=== PATIENT | female | born 1975 | race Caucasian/White ===

== ENCOUNTER → 2017-08-31 13:49 | Outpatient (CLI) | payer BC, SELFPAY ==
[2017-09-07 09:55] LABS: HPV HC, High Risk Negative (Negative); HPV Reflexed? YES, CHARGE PATIENT
== END ==
PROVIDERS: Visit Provider Obstetrics & Gynecology
DX: Z12.4 Encounter for screening for malignant neoplasm of cervix (principal); Z12.72 Encounter for screening for malignant neoplasm of vagina
CPT/HCPCS: 87624; 88175; G0145

== ENCOUNTER → 2017-09-27 06:56 | Outpatient (CLI) | payer BC, SELFPAY ==
--- NOTE | 2017-09-27 07:04 | BI_ITS ---
MAMMOGRAPHY - BILATERAL SCREENING 3-D JIMMIE SYNTHESIS REASON FOR EXAM: Female, 42 years old. Bilateral Screening 3-D tomosynthesis PERTINENT HISTORY: No significant family history. TECHNIQUE: 2-D mammograms and 3-D Jimmie synthesis of the breast (s) were performed. CAD was performed. COMPARISON: September 15, 2016. FINDINGS: The breast composition is composed of scattered fibroglandular density. No dense spiculated masses or suspicious clustered microcalcifications are identified. No architectural distortion is identified. There is no skin thickening or retraction. There has been no significant change since the prior study. BI/SCREENING MAMM (CAD), BILAT IMPRESSION: No mammographic signs of malignancy. Routine yearly mammograms recommended. ASSESSMENT CATEGORY: BIRADS Category 1: Negative. A letter regarding these results will be sent to the patient by the facility within 30 days. FOLLOW UP RECOMMENDATION: Yearly follow up mammogram recommended. (A) Approximately 10% of breast cancers are not detected by mammography. A normal mammogram should not delay biopsy of a clinically suspicious abnormality. Electronically Signed: Gabriel Perez MD at 8:23 EDT , Service support ,
== END ==
PROVIDERS: Family Provider Family Medicine; PCP Family Medicine; Visit Provider Obstetrics & Gynecology
DX: Z12.31 Encounter for screening mammogram for malignant neoplasm of breast (principal)
CPT/HCPCS: 77063; 77067

== ENCOUNTER → 2018-09-04 09:35 | Outpatient (CLI) | payer BC, SELFPAY ==
[2018-09-07 12:27] LABS: HPV HC, High Risk Positive (Negative)
== END ==
PROVIDERS: PCP Family Medicine; Visit Provider Obstetrics & Gynecology
DX: Z12.4 Encounter for screening for malignant neoplasm of cervix (principal)
CPT/HCPCS: 87624; 88175; G0145

== ENCOUNTER → 2018-10-05 11:59 | Outpatient (CLI) | payer BC, SELFPAY ==
--- NOTE | 2018-10-05 12:01 | BI_ITS ---
MAMMOGRAPHY - BILATERAL SCREENING 3-D TOMOSYNTHESIS REASON FOR EXAM: Female, 43 years old. Bilateral Screening 3-D tomosynthesis PERTINENT HISTORY: Mother at age 55 and 3 cousins at age 48, 45 and 30 with history of breast cancer.. TECHNIQUE: 2-D mammograms and 3-D Tomosynthesis of the breast (s) were performed. CAD was performed. COMPARISON: September 27, 2017. FINDINGS: The breast composition is composed of scattered fibroglandular density. Scattered benign calcifications are seen. No dense spiculated masses or suspicious microcalcifications are identified. No architectural distortion is identified. There is no skin thickening or retraction. There has been no significant change since the prior study. BI/SCREENING MAMM (CAD), BILAT IMPRESSION: No mammographic signs of malignancy. Routine yearly mammograms recommended. ASSESSMENT CATEGORY: BIRADS Category 1: Negative. A letter regarding these results will be sent to the patient by the facility within 30 days. FOLLOW UP RECOMMENDATION: Yearly follow up mammogram recommended. (A) Approximately 10% of breast cancers are not detected by mammography. A normal mammogram should not delay biopsy of a clinically suspicious abnormality. Electronically Signed: Gabriel Perez MD at 15:55 EDT , Service support ,
== END ==
PROVIDERS: Family Provider Family Medicine; PCP Family Medicine; Referring Provider Obstetrics & Gynecology; Visit Provider Obstetrics & Gynecology
DX: Z12.31 Encounter for screening mammogram for malignant neoplasm of breast (principal)
CPT/HCPCS: 77063; 77067

== ENCOUNTER → 2018-10-19 13:41 | Outpatient (CLI) | payer BC, SELFPAY ==
[2018-10-19 16:47] LABS: Chlamydia Trachomatis by PCR Negative (Negative); Neisserai gonorrhoeae by PCR Negative (Negative); Probe Check PASS; Sample Adequacy Control PASS; Specimen Processing Control PASS
== END ==
PROVIDERS: Visit Provider Obstetrics & Gynecology
DX: Z11.3 Encounter for screening for infections with a predominantly sexual mode of transmission (principal)
CPT/HCPCS: 87491; 87591

== ENCOUNTER → 2018-12-14 14:10 | Outpatient (CLI) | payer BC, SELFPAY ==
--- NOTE | 2018-12-14 14:14 | RAD_ITS ---
STUDY: X-RAY - LEFT ELBOW REASON FOR EXAM: Female, 43 years old. Posttraumatic pain TECHNIQUE: 3 view(s) of the elbow. COMPARISON: January 03, 2013 FINDINGS: Normal visualized humerus, radius and ulna. Normal radiocapitellar and ulnotrochlear articulations. The soft tissue structures are unremarkable. RAD/Elbow min 3 Views IMPRESSION: Normal x-ray examination of the elbow. Electronically Signed: Ray Muir MD at 22:00 EDT , Service support ,
== END ==
PROVIDERS: Family Provider Family Medicine; PCP Family Medicine; Referring Provider Family Medicine; Visit Provider Family Medicine
DX: M25.522 Pain in left elbow (principal)
CPT/HCPCS: 73080

== ENCOUNTER → 2020-03-26 | Outpatient (CLI) | payer BC, SELFPAY ==
[2020-03-31 03:06] LABS: Chlamydia By Nucleic Acid AMP Negative (Negative)
[2020-03-31 12:01] LABS: Gonococcus By Nucleic Acid AMP Negative (Negative)
[2020-03-31 15:48] LABS: HPV APTIMA, High Risk Negative (Negative)
[2020-03-31 15:49] LABS: HPV Reflexed? YES, CHARGE PATIENT
== END | disposition home or self-care (01) ==
LOC: LABSPEC 13:12
PROVIDERS: PCP Family Medicine; Visit Provider Student in an Organized Health Care Education/Training Program
DX: Z12.4 Encounter for screening for malignant neoplasm of cervix (principal); Z11.3 Encounter for screening for infections with a predominantly sexual mode of transmission
CPT/HCPCS: 87491; 87591; 87624; 88175; G0145

== ENCOUNTER → 2020-04-15 07:13 | Outpatient (CLI) | payer BC, SELFPAY ==
--- NOTE | 2020-04-15 07:14 | BI_ITS ---
MAMMOGRAPHY - BILATERAL SCREENING REASON FOR EXAM: Female, 44 years old. Routine annual screening examination. PERTINENT HISTORY: Mother with breast cancer. TECHNIQUE: Digital bilateral breast jimmie (3D mammographic acquisition) in the CC and MLO projections. 2-D mediolateral oblique (MLO) and craniocaudad (CC) views of both breasts were obtained. CAD: Full Field Digital Mammography with Computer Added Detection was performed. COMPARISON: Comparison is made with prior study dated 10/05/2018 and 09/27/2017. FINDINGS: Breast Composition: The breasts are heterogeneously dense, which may obscure small masses. There are no dominant masses or suspicious calcifications. No other significant abnormalities are identified. There has been no significant change since the prior study. BI/SCREEN MAMM (CAD) W/JIMMIE BILAT IMPRESSION: Stable bilateral screening mammogram. Yearly follow-up mammogram recommended. (A) ASSESSMENT CATEGORY: BIRADS Category 1: Negative. A letter regarding these results will be sent to the patient by the facility within 30 days. Approximately 10% of breast cancers are not detected by mammography. A normal mammogram should not delay biopsy of a clinically suspicious abnormality. [id number] Electronically Signed: Eber Marie, at 8:18 EST , Service support ,
== END ==
PROVIDERS: PCP Family Medicine; Referring Provider Student in an Organized Health Care Education/Training Program; Visit Provider Student in an Organized Health Care Education/Training Program
DX: Z12.31 Encounter for screening mammogram for malignant neoplasm of breast (principal); Z80.3 Family history of malignant neoplasm of breast
CPT/HCPCS: 77063; 77067

== ENCOUNTER → 2020-04-21 | Outpatient (CLI) | payer BC, SELFPAY ==
--- NOTE | 2020-04-21 | IMM_PTH ---
PATIENT: EVELYNE VILLASENOR LOC: [facility] U#:[id number] AGE/SX: 44/F ROOM: RE04/21/[address]: Dr. Adelaide Villasenor DO : 1975 BED: DIS: 04/21/2020 SPEC #: [id number] RECD: 04/23/20 13:02 STATUS: MÓNICA REQ #: [id number] EVE: 04/21/20 00:[address]: Adelaide Villasenor DEPT: IMMUNOHISTOCHEMISTRY RECD BY: Joyce Lang ENTERED: 04/23/20 13:02 SP TYPE: IMMUNO OTHR DR: Dr. Yanick Limon MD Tissues: Uterine cervix, NOS Procedures: p16 (initial) KI-67 (add) PHYSICIAN & INSTITUTION [place] [id number] SPECIMEN INFORMATION: Tissue Source: Cervix at 12 o'clock, biopsy Clinical Info: ASCUS, HPV negative Specimen Number: [id number] CPT code: 26854, 53940 METHODOLOGY: Deparaffinized sections of prefer/formalin-fixed tissue or PAP/DQ stained slides are incubated with monoclonal/polyclonal antibodies/oligonucleotide probes. Localization is made via biotin free immunoperoxidase method. Appropriate controls are performed and reacted as expected. Results on target cell population are indicated in the following table: RESULTS: ANTIBODY / CLONE RESULT P16 (E6H4) positive, focal, patchy Ki-67 (30-9) negative, moderate These tests were developed and their performance characteristics determined by [facility]. They may not have been cleared or approved by the U.S. Food and Drug Administration. The FDA has determined that such clearance or approval is not necessary. The above immunohistochemical/dualISH markers are ordered and reviewed by the Pathologist. INTERPRETATION: Cervix at 12 o'clock, biopsy: Consistent with mild squamous dysplasia TRISTEN I (LSIL). AM:kayleigh 04/24/20
--- NOTE | 2020-04-21 15:10 | CER_PTH ---
PATIENT: EVELYNE GALLAGHER LOC: [facility]#:[id number] AGE/SX: 44/F ROOM: RE04/21/[address]: Dr. Adelaide Gallagher DO : 1975 BED: DIS: 04/21/2020 SPEC #: [id number] RECD: 04/22/20 08:50 STATUS: MÓNICA REAshlie #: [id number] EVE: 04/21/20 15:[address]: Adelaide Galalgher DEPT: SURGICAL PATHOLOGY RECD BY: Laine Galloway ENTERED: 04/22/20 10:55 SP TYPE: CERV OTHR DR: Dr. Yanick Limon MD Tissues: Uterine cervix, NOS Procedures: Surgery Specimen Level IV HEADER OPERATION: Colposcopy PRE-OP DIAGNOSIS: ASCUS, HPV negative TISSUE SUBMITTED: Cervical biopsy 12 o'clock MICROSCOPIC DIAGNOSIS Cervix at 12 o'clock, biopsy: Consistent with focal HPV change. See comment. AM:kayleigh 04/23/20 COMMENT Results from immunohistochemistry ([id number]) for surrogate HPV marker (p16) supports the diagnosis. MICROSCOPIC DESCRIPTION Slides are reviewed. GROSS DESCRIPTION Received in fixative is one container labeled with the patient's name and designated cervical biopsy. The specimen consists of one irregular fragment of light tyson soft tissue that measures 0.4 x 0.3 x 0.1 cm. The specimen is totally submitted in one cassette. / AM:kayleigh 04/22/20 TC:2 CPT: 13864
== END | disposition home or self-care (01) ==
LOC: LABSPEC 04-22 08:43
PROVIDERS: PCP Family Medicine; Visit Provider Student in an Organized Health Care Education/Training Program
DX: R87.610 Atypical squamous cells of undetermined significance on cytologic smear of cervix (ASC-US) (principal)
CPT/HCPCS: 88305; 88341; 88342

== ENCOUNTER → 2020-05-20 16:03 | Outpatient (CLI) | payer BC, SELFPAY ==
[2020-05-20 18:11] LABS: Hematocrit 39.3 % (37-47); Hemoglobin 13.1 g/dL (12.0-15.0); Mean Corp Hgb Conc 33.3 g/dL (32-36); Mean Corpuscular Hgb 30.5 pg (27.0-32.0); Mean Corpuscular Volume 91.4 fL (81-99); Mean Platelet Vol. 11.7 fl (6.2-12.0); Platelet Count 265 K/mm3 (150-450); RBC Distribution Width SD 39.9 fl (35.1-43.9); White Blood Count 9.2 K/mm3 (4.4-11.0)
[2020-05-20 18:43] LABS: CRP < 2.90 mg/L (0.0-3.0); T4 Total, Thyroxin 8.5 ug/dL (4.8-13.9)
[2020-05-22 16:08] LABS: Endomysial Antibody IgA Negative (Negative)
[2020-05-22 17:07] LABS: Immunoglobulin A 176 mg/dL (87-352); t-Transglutaminase IgA <2 U/mL (0-3)
== END ==
PROVIDERS: PCP Family Medicine; Referring Provider Internal Medicine Gastroenterology; Visit Provider Internal Medicine Gastroenterology
DX: R10.9 Unspecified abdominal pain (principal); R19.7 Diarrhea, unspecified
CPT/HCPCS: 36415; 82784; 83516; 84436; 84443; 85027; 86140; 86255

== ENCOUNTER → 2020-11-30 | Outpatient (CLI) | payer BC, SELFPAY ==
[2020-11-30 17:42] LABS: Bacteria 0 SEEN /hpf (None Seen); Mucous, Urine 0 SEEN /hpf (<or=2+); Red Blood Cells-Urine 0 SEEN /hpf (0-5); Squamous Epithelial Cells - UA 0 SEEN /hpf (5-10); White Blood Cells 0 SEEN /hpf (0-5)
[2020-11-30 18:22] LABS: Color, Urine Yellow (Yellow); Glucose, Dipstick Normal (Normal); Ketone-Dipstick Negative (Negative); Leukocyte Esterase-Dipstick Negative /ul (Negative); Nitrite-Dipstick Negative (Negative); Occult Blood-Urine 10 /ul (Negative); Protein-Dipstick Negative (Negative); Urine Bilirubin Dipstick Negative (Negative); Urine Clarity Clear (Clear); Urine Urobilinogen Normal (Normal); Urine pH 6.5 (5.0 - 8.0)
== END | disposition home or self-care (01) ==
PROVIDERS: PCP Family Medicine; Visit Provider Student in an Organized Health Care Education/Training Program
DX: R30.0 Dysuria (principal); N76.0 Acute vaginitis
CPT/HCPCS: 81001; 87077; 87086; 87088

== ENCOUNTER 2021-09-02 12:21 | Outpatient (CLI) | payer BC, SELFPAY ==
[2021-09-10 13:35] LABS: HPV APTIMA, High Risk Positive (Negative)
== END 2021-09-02 23:59 | disposition home or self-care (01) ==
LOC: WOBLAB 12:22
PROVIDERS: PCP Family Medicine; Visit Provider Student in an Organized Health Care Education/Training Program
DX: Z12.4 Encounter for screening for malignant neoplasm of cervix (principal)
CPT/HCPCS: 87624; 88175; G0145

== ENCOUNTER 2021-09-10 07:07 | Outpatient (CLI) | payer OTHER, SELFPAY ==
--- NOTE | 2021-09-10 07:30 | BI_ITS ---
MAMMOGRAPHY - BILATERAL SCREENING REASON FOR EXAM: Female, 45 years old. Routine annual screening examination. PERTINENT HISTORY: Mother with breast cancer. TECHNIQUE: Digital bilateral breast jimmie (3D mammographic acquisition) in the CC and MLO projections. 2-D mediolateral oblique (MLO) and craniocaudad (CC) views of both breasts were obtained. CAD: Full Field Digital Mammography with Computer Added Detection was performed. COMPARISON: Comparison is made with prior study of 04/15/2020 and 10/05/2018. FINDINGS: Breast Composition: The breasts are heterogeneously dense, which may obscure small masses. There are no dominant masses or suspicious calcifications. No other significant abnormalities are identified. There has been no significant change since the prior study. BI/SCRN MAMM (CAD)W/JIMMIE BILAT IMPRESSION: Stable bilateral screening mammogram. Yearly follow-up mammogram recommended. (A) ASSESSMENT CATEGORY: BIRADS Category 1: Negative. A letter regarding these results will be sent to the patient by the facility within 30 days. Approximately 10% of breast cancers are not detected by mammography. A normal mammogram should not delay biopsy of a clinically suspicious abnormality. [id number] Electronically Signed: Eber Marie MD at 8:44 EDT ,
== END 2021-09-10 23:59 | disposition home or self-care (01) ==
PROVIDERS: PCP Family Medicine; Referring Provider Student in an Organized Health Care Education/Training Program; Visit Provider Student in an Organized Health Care Education/Training Program
DX: Z12.31 Encounter for screening mammogram for malignant neoplasm of breast (principal); Z80.3 Family history of malignant neoplasm of breast
CPT/HCPCS: 77063; 77067

== ENCOUNTER → 2022-09-16 | Outpatient (CLI) | payer OTHER, SELFPAY ==
[2022-09-26 13:08] LABS: HPV APTIMA, High Risk Positive (Negative)
== END | disposition home or self-care (01) ==
LOC: LABSPEC 13:12
PROVIDERS: PCP Family Medicine; Visit Provider Student in an Organized Health Care Education/Training Program
DX: Z12.4 Encounter for screening for malignant neoplasm of cervix (principal)
CPT/HCPCS: 87624; 88175; G0145

== ENCOUNTER → 2022-09-23 | Outpatient (CLI) | payer OTHER, SELFPAY ==
--- NOTE | 2022-09-23 07:49 | BI_ITS ---
MAMMOGRAPHY - BILATERAL SCREENING REASON FOR EXAM: Female, 46 years old. Routine annual screening examination. PERTINENT HISTORY: Mother with breast cancer. TECHNIQUE: Digital bilateral breast jimmie (3D mammographic acquisition) in the CC and MLO projections. 2-D mediolateral oblique (MLO) and craniocaudad (CC) views of both breasts were obtained. CAD: Full Field Digital Mammography with Computer Added Detection was performed. COMPARISON: Comparison is made with prior study dated September 10, 2021 and April 15, 2020. FINDINGS: Breast Composition: The breasts are heterogeneously dense, which may obscure small masses. There are no dominant masses or suspicious calcifications. No other significant abnormalities are identified. There has been no significant change since the prior study. BI/SCRN MAMM (CAD)W/JIMMIE BILAT IMPRESSION: Stable bilateral screening mammogram. Yearly follow-up mammogram recommended. (A) ASSESSMENT CATEGORY: BIRADS Category 1: Negative. A letter regarding these results will be sent to the patient by the facility within 30 days. Approximately 10% of breast cancers are not detected by mammography. A normal mammogram should not delay biopsy of a clinically suspicious abnormality. [id number] Electronically Signed: Eber Marie MD at 9:11 EDT ,
== END | disposition home or self-care (01) ==
PROVIDERS: PCP Family Medicine; Referring Provider Student in an Organized Health Care Education/Training Program; Visit Provider Student in an Organized Health Care Education/Training Program
DX: Z12.31 Encounter for screening mammogram for malignant neoplasm of breast (principal)
CPT/HCPCS: 77063; 77067

== ENCOUNTER → 2022-10-11 | Outpatient (CLI) | payer OTHER, SELFPAY ==
--- NOTE | 2022-10-11 | ECC_PTH ---
PATIENT: EVELYNE GALLAGHER LOC: [facility] U#:[id number] AGE/SX: 47/F ROOM: RE10/11/[address]: Dr. Zachary Gallagher MD : 1975 BED: DIS: 10/11/2022 SPEC #: [id number] RECD: 10/11/22 17:00 STATUS: MÓNICA SUDEEP #: [id number] EVE: 10/11/22 00:[address]: Zachary Gallagher DEPT: SURGICAL PATHOLOGY RECD BY: Laine Galloway ENTERED: 10/12/22 10:23 SP TYPE: SHAMIKA PHILLIP DR: Dr. Yanick Limon MD Tissues: A - Endocervical B - Endocervical Procedures: Surgery Specimen Level IV HEADER OPERATION: Colposcopy PRE-OP DIAGNOSIS: Abnormal pap TISSUE SUBMITTED: A ? 1, 6 and 11 o?clock, B - Endocervical curettings MICROSCOPIC DIAGNOSIS A. Cervix, 1, 6 and 11 o?clock, biopsy: Focal changes suspicious for HPV cytopathic effects. Moderate acute and chronic inflammation. See comment. B. Endocervical curettings: Scant fragments of benign ecto- and endocervical epithelium, blood and mucous, negative for dysplasia. See comment. SJ:rg 10/13/2022 COMMENT A. Immunohistochemistry ([id number]) for surrogate HPV marker (p16) supports the above diagnosis. B. The specimen predominantly consists of blood and mucous. MICROSCOPIC DESCRIPTION Slides are reviewed. GROSS DESCRIPTION A - Received in fixative is one container labeled with the patient's name and designated 1, 6 and 11 o'clock. The specimen consists of multiple irregular fragments of tyson soft tissue mixed with mucoid tissue that in aggregate measure 1.5 x 1.5 x 0.2 cm. The specimen is totally submitted in one cassette. B - Received in fixative is one container labeled with the patient's name and designated ECC. The specimen consists of multiple fragments of hemorrhagic soft tissue that in aggregate measure 2.0 x 1.5 x 0.1 cm. The specimen is totally submitted in one cassette. / LISET:kayleigh 10/12/2022 TC:5 CPT: 65891 x2
--- NOTE | 2022-10-11 | IMM_PTH ---
PATIENT: EVELYNE VILLASENOR LOC: [facility] U#:[id number] AGE/SX: 47/F ROOM: RE10/11/[address]: Dr. Zachary Villasenor MD : 1975 BED: DIS: 10/11/2022 SPEC #: [id number] RECD: 10/13/22 13:40 STATUS: MÓNICA REQ #: [id number] EVE: 10/11/22 00:[address]: Zachary Villasenor DEPT: IMMUNOHISTOCHEMISTRY RECD BY: Joyce Lang ENTERED: 10/13/22 13:42 SP TYPE: IMMUNO OTHR DR: Dr. Yanick Limon MD Tissues: A - Uterine cervix, NOS Procedures: p16 (initial) KI-67 (add) PHYSICIAN & INSTITUTION [place] [id number] SPECIMEN INFORMATION: Tissue Source: A ? Cervix, 1, 6 & 11 o?clock Clinical Info: Abnormal pap Specimen Number: [id number] CPT code: 24417, 31607 METHODOLOGY: Deparaffinized sections of prefer/formalin-fixed tissue or PAP/DQ stained slides are incubated with monoclonal/polyclonal antibodies/oligonucleotide probes. Localization is made via biotin free immunoperoxidase method. Appropriate controls are performed and reacted as expected. Results on target cell population are indicated in the following table: RESULTS: ANTIBODY / CLONE RESULT Block A P16 (E6H4) positive, foal patchy staining Ki-67 (30-9) positive, very low These tests were developed and their performance characteristics determined by [facility]. They may not have been cleared or approved by the U.S. Food and Drug Administration. The FDA has determined that such clearance or approval is not necessary. The above immunohistochemical/dualISH markers are ordered and reviewed by the Pathologist. INTERPRETATION: A. Cervix, 1, 6 & 11 o?clock, biopsy: Focal changes suspicious for HPV cytopathic effects. LISET:kayleigh 10/14/2022
== END | disposition home or self-care (01) ==
LOC: WOBLAB 15:32
PROVIDERS: PCP Family Medicine; Visit Provider Obstetrics & Gynecology
DX: R87.619 Unspecified abnormal cytological findings in specimens from cervix uteri (principal)
CPT/HCPCS: 88305; 88341; 88342